=== PATIENT | female | born 2000 | race African-American/Black ===

== ENCOUNTER 2024-02-04 12:43 | Emergency (ER) | payer SELFPAY ==
[~2024-02-04] VITALS: Ht 167.6 cm; Wt 83.0 kg
[2024-02-04 12:56] VITALS: BP 128/61; PULSE 109; RESP 18; TEMP 98.6; O2SAT 99
[2024-02-04] MEDS: AZITHROMYCIN 500 MG TABLET PO ONE (15:50)
[2024-02-04] MEDS: LIDOCAINE HCL 1% 20ML VIAL INFIL ONE (15:50)
[2024-02-04] MEDS: CEFTRIAXONE SODIUM 500MG VIAL IM ONE (15:50)
[2024-02-04 15:57] LABS: *AMPHETAMINES SCREEN URINE NEGATIVE (NEGATIVE); *BARBITURATES SCREEN URINE NEGATIVE (NEGATIVE); *BENZODIAZEPINES SCREEN URINE NEGATIVE (NEGATIVE); *COCAINE SCREEN URINE NEGATIVE (NEGATIVE); CANNABINOID URINE SCREEN PRESUMPTIVE POSITIVE (NEGATIVE); METHADONE URINE SCREEN NEGATIVE (NEGATIVE); OPIATES URINE SCREEN NEGATIVE (NEGATIVE); PHENCYCLIDINE URINE SCREEN NEGATIVE (NEGATIVE)
[2024-02-04 15:58] LABS: ECSTASY MDMA SCREEN URINE NEGATIVE (NEGATIVE)
[2024-02-04 16:13] LABS: HEPATITIS B SURFACE ANTIGEN NEGATIVE (Negative)
[2024-02-04 16:33] LABS: HEPATITIS A AB IGM NEGATIVE (Negative)
[2024-02-04 16:34] LABS: HEPATITIS B CORE AB IGM NEGATIVE (Negative); HEPATITIS C AB NON REACTIVE (Neg) (Negative)
[2024-02-07 09:09] LABS: HSV TYPE 1 SPECIFIC AB IGG Negative: <0.91 index (0.00-0.90); HSV TYPE 2 SPECIFIC AB IGG Negative: <0.91 index (0.00-0.90)
== END 2024-02-04 15:54 | disposition home or self-care (01) ==
LOC: ER 12:43
DX: T76.21XA Adult sexual abuse, suspected, initial encounter (principal); N93.9 Abnormal uterine and vaginal bleeding, unspecified; X58.XXXA Exposure to other specified factors, initial encounter; A64 Unspecified sexually transmitted disease
CPT/HCPCS: 86695; 86696; 80305; 81025; 80320; 87340; 86592; 36415; 86705; 86709; 96372; 99283; J0696; J3490; Z7610; G0480